=== PATIENT | female | born 1995 | race Caucasian/White ===

== ENCOUNTER 2023-09-19 19:03 | Emergency (ER) | payer OTHER ==
[~2023-09-19] VITALS: Ht 162.6 cm; Wt 82.0 kg
[2023-09-19 19:25] VITALS: O2SAT 98
[2023-09-19] MEDS: KETOROLAC 30MG/ML VIAL IM ONE (20:55)
[2023-09-19] MEDS ORDERED: IBUP-2029 MT (22:51)
[2023-09-19 23:06] VITALS: BP 134/66; PULSE 85; RESP 18; TEMP 98.6
== END 2023-09-19 23:15 | disposition home or self-care (01) ==
LOC: ER 19:03
DX: R51.9 Headache, unspecified (principal); R68.84 Jaw pain
CPT/HCPCS: 81025; 70450; 96372; 99285; J1885; Z7610; 99283